=== PATIENT | female | born 1955 | race Hispanic/Latino ===

== ENCOUNTER 2021-09-22 14:05 | Emergency (ER) | payer MEDICARE, OTHER ==
[~2021-09-22] VITALS: Ht 162.6 cm; Wt 95.4 kg
[2021-09-22] MEDS ORDERED: LISINOPRIL2.5 MG PO (14:18)
[2021-09-22] MEDS ORDERED: HYDROCODONE/APAP 5MG-325MG TAB ONE (14:41)
[2021-09-22] MEDS ORDERED: HYDROCODONE/APAP 5MG-325MG TAB PO ONE (14:45)
[2021-09-22] MEDS ORDERED: KETAMINE HCL INJ 50 MG/ML 10 ML VIAL ONE ×2 (15:34→16:18)
[2021-09-22] MEDS ORDERED: SODIUM CHLORIDE 0.9% 500ML 500 ML ONE ×2 (15:34→18:46)
[2021-09-22] MEDS ORDERED: FENTANYL CITRATE/PF 100MCG/2 ML INJ ONE ×2 (15:43→16:28)
[2021-09-22] MEDS ORDERED: KETAMINE HCL INJ 50 MG/ML 10 ML VIAL IM ONE (15:45)
[2021-09-22] MEDS ORDERED: HYDROCODON-ACE1 EA11 PO (15:59)
[2021-09-22] MEDS ORDERED: FENTANYL CITRATE/PF 100MCG/2 ML INJ IV ONE ×5 (16:00→18:30)
[2021-09-22] MEDS ORDERED: KETAMINE HCL INJ 50 MG/ML 10 ML VIAL IV ONE ×2 (17:30)
[2021-09-22] MEDS ORDERED: ONDANSETRON HCL INJ 2MG/ML 2ML 2 MG/ML VIAL ONE (18:08)
[2021-09-22] MEDS ORDERED: FLUMAZENIL 0.5MG/ 5ML VIAL ONE (18:14)
[2021-09-22] MEDS ORDERED: MIDAZOLAM HCL 2 MG/2 ML VIAL ONE (18:14)
[2021-09-22] MEDS ORDERED: MIDAZOLAM HCL 2 MG/2 ML VIAL IV STA (18:29)
[2021-09-22] MEDS ORDERED: ONDANSETRON HCL INJ 2MG/ML 2ML 2 MG/ML VIAL IV STA (19:24)
== END 2021-09-22 20:42 | disposition home or self-care (01) ==
LOC: FSED 14:23
DX: S43.084A Other dislocation of right shoulder joint, initial encounter (principal); W01.0XXA Fall on same level from slipping, tripping and stumbling without subsequent striking against object, initial encounter; Y93.01 Activity, walking, marching and hiking; Y92.008 Other place in unspecified non-institutional (private) residence as the place of occurrence of the external cause; I10 Essential (primary) hypertension; Z85.3 Personal history of malignant neoplasm of breast
CPT/HCPCS: 23655; 73020; 73030; 73200; 96374; 96375; 96376; 99284; J2250; J2405; J3010; J7040